=== PATIENT | female | born 1965 ===

== ENCOUNTER 2025-05-30 11:07 | Emergency (ER) | payer MEDICAID ==
[~2025-05-30] VITALS: Ht 162.6 cm; Wt 74.6 kg
[2025-05-30 11:13] VITALS: BP 143/75; PULSE 86; RESP 18; TEMP 96.8; O2SAT 99
--- NOTE | 2025-05-30 11:37 | Physician Documentation ---
History of Present Illness ~ Chief Complaint: Bite-animal Stated Complaint: CAT BITE Time Seen by MD: 11:22 HPI This is a 59-year-old female who presents with a cat bite to her right 2nd finger, patient reports that the bite was from her cat when the cat was playing with her, patient reports that she has washed it thoroughly. Patient reports last Tdap over five years ago. Patient reports no other acute symptoms or concerns. Medication Reconciliation Allergies: Coded Allergies: shellfish derived (Verified Allergy, Unknown, 05/30/25) Scheduled Amox Tr/Potassium Clavulanate 875/125 MG (Augmentin 875/125 MG), 1 TAB PO BID Past Medical History Past Medical History: No Pertinent History Review of Systems ROS As stated above in the HPI, otherwise all systems are reviewed and negative. Physical Exam Vital Signs: Temperature: 96.8, Source: Temporal, Heart Rate: 86, Respiratory Rate: 18, BP: 143/75, Pulse Oximetry: 99, Weight: 74.600 Oxygen Flow Rate: 0 Physical Exam VITALS: Reviewed and as above. GENERAL: Alert, nontoxic appearing, no apparent distress. RESPIRATORY: No increased work of breathing, no respiratory distress, speaking in full clear sentences CV: Brisk capillary refill to right finger MUSCULOSKELETAL: ROM intact to right 2nd finger, strength intact to right 2nd finger SKIN: Skin of right 2nd finger two small puncture wounds, no erythema, no ecchymosis, no evidence of foreign body NEURO: 2nd finger sensation intact Progress Results/Orders Results/Orders Completed Orders - TYRELL RIVERS [place] [employer] Tetanus/Pertuss/Diph Acell/Pf (Boostrix (05/30/25 11:40) Vital Signs 05/30/25 11:13 Temp 96.8 Pulse 86 Resp 18 B/P (MAP) 143/75 Pulse Ox 99 O2 Flow Rate 0 Medical Decision Making Additional information obtaine: N/A Findings This 59-year-old female presented with a cat bite to her right 2nd finger, it is reassuring that this is the patient's cat therefore rabies prophylaxis not indicated, the wound looks uncomplicated with no swelling or erythema, physical exam was reassuring without evidence of tendon involvement. No evidence of r etained foreign body. Treatment with course of oral antibiotics indicated and Tdap updated. Patient is otherwise well-appearing and appropriate for outpatient follow up. Patient provided home care instructions, and return to care precautions, and follow up instructions which he verbalized understanding of. Differential Dx:Considerations: Include: Allergic reaction, Anaphylaxis, Laceration, Neurovascular injury, Punture wound, Retained foreign body Departure Time of Disposition: 11:36 Disposition: 01 HOME / SELF CARE / HOMELESS Impression: Primary Impression: Cat bite Qualified Codes: W55.01XA - Bitten by cat, initial encounter Condition: Improved Discharge Instructions: Animal Bite, Adult Additional Instructions: Keep the area clean dry and covered, please take the antibiotics as prescribed. Please follow up with your primary care provider in the next few days. Please return to the emergency department for any new or worsening concerning symptoms including but not limited to increased pain and swelling to the area or if you develop a fever. Referrals: NO PRIMARY CARE PROVIDER (PCP) Prescriptions Amox Tr/Potassium Clavulanate 875/125 MG (Augmentin 875/125 MG) 875 Mg-125 Mg Tablet 1 TAB PO BID for 7 Days, #14 TAB Prov: TYRELL RIVERS 05/30/25 Education Educated: Patient Educated regarding: diagnosis, treatment, prognosis, need for follow up Signature Scribe Signature: No scribe Attestation: The note accurately reflects work and decisions made by me.JOVANY Carranza 05/30/25 20:24 TYRELL RIVERS May 30, 2025 11:37
[2025-05-30] MEDS ORDERED: AMOX-580 PO (11:39)
[2025-05-30] MEDS ORDERED: TETanus/Pertussis (Acell)/Diphther VAC/PF (Tdap-Adult) 0.5ml syringe IMVAC ONE (11:40)
== END 2025-05-30 15:15 | disposition left against medical advice (07) ==
LOC: ER 11:10
DX: S61.250A Open bite of right index finger without damage to nail, initial encounter (principal); Z91.013 Allergy to seafood; W55.01XA Bitten by cat, initial encounter; Y93.89 Activity, other specified; Y92.89 Other specified places as the place of occurrence of the external cause; Y99.8 Other external cause status
CPT/HCPCS: 99283